=== PATIENT | female | born 1975 | race Two or more races ===

== ENCOUNTER 2022-06-23 20:23 | Emergency (ER) | payer OTHER ==
[~2022-06-23] VITALS: Ht 172.7 cm; Wt 92.7 kg
[2022-06-23 21:41] VITALS: BP 129/69
[2022-06-23] MEDS ORDERED: HYDROcodone-ACET 5/325MG TAB PO ONE (22:00)
[2022-06-23] MEDS ORDERED: ONDANSETRON ODT 4 MG TAB PO ONE (22:00)
[2022-06-24] MEDS ORDERED: IBUP600T27 PO (16:45)
[2022-06-24] MEDS ORDERED: HYDR-4902 PO (16:49)
== END 2022-06-24 00:02 | disposition home or self-care (01) ==
LOC: ER 20:33
DX: S09.8XXA Other specified injuries of head, initial encounter (principal); M54.2 Cervicalgia; W22.8XXA Striking against or struck by other objects, initial encounter; Y93.89 Activity, other specified; Y92.89 Other specified places as the place of occurrence of the external cause; Y99.8 Other external cause status
CPT/HCPCS: 70450; 99284; Q0162

== ENCOUNTER → 2022-06-24 | Emergency (ER) | payer OTHER ==
[~2022-06-24] VITALS: Ht 157.5 cm; Wt 98.0 kg
[~2022-06-24] MED LIST: HYDR-4902 PO; IBUP600T27 PO; KETOROLAC TROMETH 60MG/2ML VIAL IM ONE; ONDANSETRON ODT 4 MG TAB PO ONE
[2022-06-24 15:21] VITALS: BP 106/68
== END | disposition home or self-care (01) ==
LOC: ER 14:20
DX: S09.8XXA Other specified injuries of head, initial encounter (principal); W22.8XXA Striking against or struck by other objects, initial encounter; Y93.89 Activity, other specified; Y92.89 Other specified places as the place of occurrence of the external cause; Y99.8 Other external cause status
CPT/HCPCS: 70450; 96372; 99284; J1885; Q0162